=== PATIENT | female | born 1960 | race Two or more races ===

== ENCOUNTER 2020-06-02 15:02 | Outpatient (CLI) | payer OTHER | END 2020-06-02 17:21 | disposition home or self-care (01) | LOC: OFIC 805 15:02 | PROVIDERS: ATTEND Otolaryngology | DX: K21.9 Gastro-esophageal reflux disease without esophagitis (principal) ==

== ENCOUNTER 2020-06-11 08:18 | Outpatient (CLI) | payer OTHER | END 2020-06-11 09:05 | disposition home or self-care (01) | LOC: SONOGRAMA 08:18 | PROVIDERS: ATTEND Pathology Anatomic Pathology & Clinical Pathology | DX: C73 Malignant neoplasm of thyroid gland (principal) ==

== ENCOUNTER 2020-06-23 11:06 | Outpatient (CLI) | payer OTHER | END 2020-06-23 15:55 | disposition home or self-care (01) | LOC: OFIC 805 11:06 | PROVIDERS: ATTEND Otolaryngology | DX: K21.9 Gastro-esophageal reflux disease without esophagitis (principal) ==